=== PATIENT | female | born 1955 | race African-American/Black ===

== ENCOUNTER 2021-04-20 01:48 | Inpatient (IN) | payer BC, MEDICARE ==
[~2021-04-20] VITALS: Ht 165.1 cm; Wt 63.7 kg
[2021-04-20] MEDS ORDERED: FOLI1TAB94 PO (02:10)
[2021-04-20] MEDS ORDERED: MORP15TA PO (02:10)
[2021-04-20] MEDS ORDERED: HYDR-3980 PO (02:10)
[2021-04-20] MEDS ORDERED: LUBI24CA5 PO (02:10)
[2021-04-20] MEDS ORDERED: DOCU100C36 PO (02:10)
[2021-04-20] MEDS ORDERED: IV NORMAL SALINE 1000 ML BAG IV ONE (02:15)
[2021-04-20 02:52] LABS: HEMATOCRIT 25.5 % (31.2-41.9); MEAN CORPUSCULAR VOLUME 79.9 fL (75.5-95.3); PLATELET COUNT (AUTO) 345 K/uL (179-408)
[2021-04-20 02:59] LABS: CREATININE 1.9 mg/dL (0.6-1.3); POTASSIUM 4.1 mmol/L (3.5-5.1)
[2021-04-20 03:01] LABS: NEUTROPHILS % (MANUAL) 0 % (42-75)
[2021-04-20 03:11] LABS: BILIRUBIN,DIRECT 0.2 mg/dL (0.0-0.2); BILIRUBIN,TOTAL 0.5 mg/dL (0.2-1.0); TOTAL PROTEIN, SERUM 6.1 g/dL (6.4-8.2)
[2021-04-20] MEDS ORDERED: KETAMINE HCL 500 MG/10 ML INJ IV ONE (03:30)
[2021-04-20] MEDS ORDERED: AZITHROMYCIN IV 500 MG in IV DEXTROSE 5% 250 ML IV ONE (06:15)
[2021-04-20] MEDS ORDERED: CEFEPIME HCL 1 G in IV DEXTROSE 5% 50 ML IV ONE (06:15)
[2021-04-20] MEDS ORDERED: REMEDY ESSENTIAL ZINC PASTE 113 GM TP PRN (06:30)
[2021-04-20] MEDS ORDERED: CEFTRIAXONE 500 MG in IV DEXTROSE 5% 50 ML IV SCH (06:30)
--- NOTE | 2021-04-20 07:55 | NUR ---
Called report to DEVON Mario.
[2021-04-20] MEDS ORDERED: Medication Not On Formulary EA (Lubiprostone (Amitiza) 24 MCG) PO SCH (09:00)
[2021-04-20] MEDS ORDERED: FUROSEMIDE 40 MG/4 ML VIAL IV SCH (09:00)
[2021-04-20] MEDS: FOLIC ACID 1 MG TABLET PO SCH (09:02)
[2021-04-20] MEDS: DOCUSATE SODIUM 100 MG CAPSULE PO SCH ×2 (09:02→16:03)
[2021-04-20] MEDS: VANCOMYCIN IV 750 MG in IV DEXTROSE 5% 250 ML IV SCH (09:02)
[2021-04-20 09:40] VITALS: BP 113/80
--- NOTE | 2021-04-20 09:45 | NUR ---
Received report from DEVON Baumann from ER.
--- NOTE | 2021-04-20 09:47 | NUR ---
Received patient from ER. Patient presented to ER with generalized weakness due to numerous attempts of trying to get out of bed. Upon assessment, patient appears to be AOx3. Patient has liver cancer and currently has a permacatch on patient's upper right chest. Due to patient's CHF, patient will only be receiving fluids with antibiotics scheduled for the day. Site is intact and patent. Patient showing no immediate signs of distress or discomfort. Bed left in lowest position with call light within reach.
[2021-04-20] MEDS: CEFEPIME HCL 1 G in IV DEXTROSE 5% 50 ML IV SCH (11:01)
[2021-04-20 12:00] VITALS: BP 103/61
[2021-04-20] MEDS ORDERED: CEFEPIME HCL 2 G in IV DEXTROSE 5% 100 ML IV SCH (14:00)
[2021-04-20 16:00] VITALS: BP 96/63
[2021-04-20] MEDS: HYDROCODONE/APAP 10-325 MG TABLET PO PRN ×2 (16:15→21:30)
[2021-04-20 20:35] VITALS: BP 95/53
--- NOTE | 2021-04-20 21:39 | NUR ---
Patient in bed awake and able to make needs known.C/o abd'l pain.Medicated with [place].Repositioned patient for comfort. Perma cath on right upper chest intact. Incontinent .Voided well.Call light with in reach.Will continue to monitor.
[2021-04-21 00:21] VITALS: BP 105/67
[2021-04-21] MEDS: ACETAMINOPHEN 325 MG TABLET PO PRN ×2 (01:59→11:01)
[2021-04-21] MEDS: HYDROCODONE/APAP 10-325 MG TABLET PO PRN ×4 (05:12→20:30)
[2021-04-21 05:35] LABS: *BILIRUBIN,URIN NEGATIVE (NEGATIVE); *BLOOD, URINE NEGATIVE (NEGATIVE); *CLARITY,URINE CLEAR (CLEAR); *COLOR,URINE YELLOW (YELLOW); *KETONES,URINE NEGATIVE (NEGATIVE); *UROBILINOGEN,URINE 0.2 E.U./dl (NORMAL); LEUKOCYTE ESTERASE ,URINE NEGATIVE (NEGATIVE); NITRITE, URINE NEGATIVE (NEGATIVE); UGLUCOSE NEGATIVE (NEGATIVE)
[2021-04-21 05:46] VITALS: BP 102/58
[2021-04-21 06:36] LABS: HEMATOCRIT 22.4 % (31.2-41.9); MEAN CORPUSCULAR HEMOGLOBIN 26.4 uug (24.7-32.8); MEAN CORPUSCULAR VOLUME 79.2 fL (75.5-95.3); PLATELET COUNT (AUTO) 284 K/uL (179-408)
[2021-04-21 07:05] LABS: CREATININE 1.8 mg/dL (0.6-1.3); MAGNESIUM 1.7 mg/dL (1.8-2.4); PHOSPHOROUS 2.7 mg/dL (2.5-4.9)
[2021-04-21] MEDS ORDERED: POTASSIUM CHLORIDE 20 MEQ POWDER PACKET GT ONE (08:00)
[2021-04-21] MEDS ORDERED: MAGNESIUM SULFATE/D5W 100 ML IV SCH (08:00)
[2021-04-21] MEDS ORDERED: POTASSIUM CHLORIDE 20 MEQ POWDER PACKET PO ONE (08:00)
[2021-04-21] MEDS: FOLIC ACID 1 MG TABLET PO SCH (08:26)
[2021-04-21] MEDS: DOCUSATE SODIUM 100 MG CAPSULE PO SCH ×2 (08:26→16:28)
[2021-04-21] MEDS: METOPROLOL SUCCINATE XL 25 MG TAB.SR.24H PO SCH (08:29)
[2021-04-21] MEDS ORDERED: POTASSIUM CHLORIDE 10 MEQ, LIDOCAINE-MPF 1% 1 ML in IV DEXTROSE 5% 100 ML IV SCH ×6 (09:00)
[2021-04-21] MEDS: POTASSIUM CHLORIDE 10 MEQ, LIDOCAINE-MPF 1% 1 ML in IV DEXTROSE 5% 100 ML IV SCH ×6 (09:57→15:27)
[2021-04-21] MEDS: CEFEPIME HCL 1 G in IV DEXTROSE 5% 50 ML IV SCH (10:51)
[2021-04-21 11:49] VITALS: BP 98/57
--- NOTE | 2021-04-21 11:56 | NUR ---
WOUND CARE CONSULT: PT PRESENTS WITH SACRAL STAGE 3 ULCER WITH SURROUNDING INTACT DEEP TISSUE INJURY, PRESENT ON ADMISSION. PT IS VERY THIN AND BONY. DIETARY CONSULT IN PLACE. SURGICAL CONSULT REQUESTED FROM DR WALTERS FOR SACRAL WOUND. RECOMMENDATIONS MADE FOR SKIN PROTECTION. DISCUSSED WITH NURSING STAFF. FIRST STEP LOW AIRLOSS MATTRESS IS ON ORDER. IN AGREEMENT WITH PLAN OF CARE. Addendum: 04/21/21 at 1158 by SHAHBAZ SOTO RN Amended: Links added.
--- NOTE | 2021-04-21 14:41 | NUR ---
Clinical Social Work Note SW consult was requested for continuity of care. Sw met with 66 year old female who is alert and oriented x4. Patient presents with a withdrawn mood and flat affect. SW inquired about patient's support system at home and discuss discharge plans. Patient stated that she lives alone and does not have family. SW asked patient if she will be interested in SNF placement and she refused. SW asked patient if she would like caregiving resources and patient refused. Patient stated that she would like to be discharged home with home health. Plan: SW will file an APS report due to self neglect.
--- NOTE | 2021-04-21 15:09 | NUR ---
Social Work APS Report Protective Services Report (Intake ID [id number]) was submitted on 04/21/2021 at 3:06 PM. A copy of report has been placed in patients chart.
--- NOTE | 2021-04-21 15:29 | NUR ---
Patient receiving last bag of Potassium 08/07. Scheduled to complete at 1630
[2021-04-21 16:47] VITALS: BP 98/78
--- NOTE | 2021-04-21 17:07 | NUR ---
Wound treatment for patient's sacrum to be treated with oil emulsion dressing, with mepillex dressing over both the wound and oil emulsion dressing. Will endorse information to PM nurse.
[2021-04-21] MEDS: VANCOMYCIN IV 750 MG in IV DEXTROSE 5% 250 ML IV SCH (17:32)
--- NOTE | 2021-04-21 18:57 | NUR ---
Patient dealt with pain most of shift despite pain management. Patient still rates pain high. Comfort measures provided by providing step down mattress, and utilization of pain management medication. Patient not showing any signs of distress or discomfort. Patient seen my social work lecturer, dietitian, and awaiting for pain management consult. Portacath site intact and patent. Bed left in lowest position with call light within reach. Will endorse information to PM nurse
--- NOTE | 2021-04-21 20:00 | NUR ---
Patient noted with severe pain to ABD radiating under ribcages, Tender to touch. Made aware Tylenol is available and norco can be given soon. Patient insists on having Morphine and [place] as combination for pain. On RA, no SOB. AAO x4. Portacath in place to right chest wall. Telemetry is NSR at HR 85 BPM. Noted with pitting edema to BLE, 2+. On RA, no SOB. Needs attended, call light within reach.
[2021-04-21 20:36] VITALS: BP 101/62
[2021-04-21] MEDS ORDERED: MORPHINE SULFATE 2 MG/1 ML DISP.SYRIN IV PRN (22:00)
--- NOTE | 2021-04-21 22:20 | NUR ---
MD Evans made aware of patient severe pain to ABD and request for Morphine PRN for break through pain. Per MD, Pain management needs to assess patient for proper OPIOID dosing. One time dose for Morphine 0.5mg IV provided and carried out. Explained this to patient and she agrees.
[2021-04-22 00:54] VITALS: BP 95/51
[2021-04-22] MEDS: HYDROCODONE/APAP 10-325 MG TABLET PO PRN ×4 (03:14→18:20)
[2021-04-22] MEDS: ONDANSETRON 4 MG/2 ML VIAL IV PRN ×2 (03:30→11:46)
[2021-04-22 04:00] VITALS: BP 125/69
[2021-04-22 06:17] LABS: CREATININE 1.5 mg/dL (0.6-1.3); POTASSIUM 3.6 mmol/L (3.5-5.1)
[2021-04-22 06:38] LABS: HEMATOCRIT 24.8 % (31.2-41.9); MEAN CORPUSCULAR HEMOGLOBIN 26.5 uug (24.7-32.8); MEAN CORPUSCULAR VOLUME 78.9 fL (75.5-95.3); PLATELET COUNT (AUTO) 274 K/uL (179-408)
--- NOTE | 2021-04-22 06:51 | NUR ---
Patient slept intermittent. Noted with severe pain when repositioned. patient states she slept well without pain for a few hours after the morphine and [place] dose. Portacath in place to right chest wall. Telemetry is NSR at HR 75 BPM. Still noted with Pitting edema to BLE. On RA, no SOB. Call light within reach.
[2021-04-22] MEDS: FOLIC ACID 1 MG TABLET PO SCH (08:57)
[2021-04-22] MEDS: METOPROLOL SUCCINATE XL 25 MG TAB.SR.24H PO SCH (08:57)
[2021-04-22] MEDS: DOCUSATE SODIUM 100 MG CAPSULE PO SCH ×2 (08:57→16:28)
[2021-04-22] MEDS: ENSURE ENLIVE (VAN) 240 ML LIQUID PO SCH (08:58)
[2021-04-22 11:04] VITALS: BP 125/80
[2021-04-22] MEDS: CEFEPIME HCL 1 G in IV DEXTROSE 5% 50 ML IV SCH (11:47)
[2021-04-22] MEDS: MORPHINE SULFATE IR 30 MG TABLET PO PRN ×3 (13:58→22:43)
[2021-04-22 15:15] VITALS: BP 118/77
--- NOTE | 2021-04-22 19:35 | NUR ---
PT AA) x4. Able to make needs known. States he pain is now more controlled with new regimen. On RA, no SOB. Portacath in place to right chest wall, patent and intact. Telemetry is NSR at HR 76 BPM. Noted with pitting edema to BLE, 2+. On RA, no SOB. Needs attended, call light within reach.
[2021-04-22 20:18] VITALS: BP 128/74
[2021-04-23 00:26] VITALS: BP 121/69
[2021-04-23] MEDS: ONDANSETRON 4 MG/2 ML VIAL IV PRN ×2 (00:35→20:14)
[2021-04-23] MEDS: VANCOMYCIN IV 750 MG in IV DEXTROSE 5% 250 ML IV SCH (00:35)
[2021-04-23] MEDS: HYDROCODONE/APAP 10-325 MG TABLET PO PRN ×2 (01:45→20:20)
[2021-04-23 04:29] VITALS: BP 114/76
--- NOTE | 2021-04-23 05:58 | NUR ---
PT AA0 x4. Slept well, request pain medication for severe abdominal pain, pain relief achieved. On RA, no SOB. Portacath in place to right chest wall, patent and intact. Telemetry is NSR at HR 81 BPM. On first step mattress, turned and repositioned every 2 hours for off loading pressure areas. Tolerates well, patient needs moderate to extensive assist. Needs attended, call light within reach.
[2021-04-23 06:33] LABS: CREATININE 1.2 mg/dL (0.6-1.3); POTASSIUM 3.5 mmol/L (3.5-5.1)
[2021-04-23 06:38] LABS: HEMATOCRIT 25.7 % (31.2-41.9); MEAN CORPUSCULAR HEMOGLOBIN 25.9 uug (24.7-32.8); PLATELET COUNT (AUTO) 265 K/uL (179-408)
[2021-04-23] MEDS: MORPHINE SULFATE IR 30 MG TABLET PO PRN ×3 (06:48→22:45)
--- NOTE | 2021-04-23 08:00 | NUR ---
patient resting comfortably in with mophine previously given by night time babysitter, no signs of distress. seen by DR MAY FOR FOLLOW-UP SEE NOTES. SR ON MONITOR
[2021-04-23] MEDS: FOLIC ACID 1 MG TABLET PO SCH (08:17)
[2021-04-23] MEDS: DOCUSATE SODIUM 100 MG CAPSULE PO SCH ×2 (08:17→16:34)
[2021-04-23] MEDS: METOPROLOL SUCCINATE XL 25 MG TAB.SR.24H PO SCH (08:17)
[2021-04-23] MEDS: ENSURE ENLIVE (VAN) 240 ML LIQUID PO SCH ×2 (08:18→16:34)
[2021-04-23] MEDS ORDERED: MEROPENEM 1 G in IV NORMAL SALINE 100 ML IV ONE (09:00)
[2021-04-23 11:46] VITALS: BP 112/65
--- NOTE | 2021-04-23 11:59 | NUR ---
RESTING AND SLEEPING MOST OF THE MORNING. NO SS OF ACUTE PAIN AND DISTRESS
[2021-04-23 16:19] VITALS: BP 132/78
--- NOTE | 2021-04-23 18:05 | NUR ---
CONTINUE WITH PAIN MANAGEMENT WITH GOOD RELIEF. RESTING MOST ON THE DAY. SR ON MONITOR. CONTINUE WITH TELE MONITORING
--- NOTE | 2021-04-23 19:30 | NUR ---
Patient resting in bed, comfortable in bed. Denies any pain at this time. On RA, no SOB. Portacath in place to right chest wall, patent and intact. Telemetry is NSR. Noted with pitting edema to BLE, 1+. Needs attended, call light within reach.
[2021-04-23 20:09] VITALS: BP 132/77
[2021-04-23] MEDS: MEROPENEM 1 G in IV NORMAL SALINE 100 ML IV SCH (20:14)
[2021-04-23] MEDS: MAGNESIUM HYDROXIDE 30 ML LIQUID UDC PO PRN (20:20)
[2021-04-24 00:03] VITALS: BP 120/77
[2021-04-24] MEDS: VANCOMYCIN IV 1,000 MG in IV DEXTROSE 5% 250 ML IV SCH (00:46)
[2021-04-24 04:09] VITALS: BP 122/69
--- NOTE | 2021-04-24 05:35 | NUR ---
Patient requested Morphine one time and [place] one time. Pain management is effective. Noted with one episode of nausea, states she has not had a bm in 3 days. MOM administered to aide in BM. No BM at this time. Call light within reach, all needs attended.
[2021-04-24 06:21] LABS: HEMATOCRIT 26.5 % (31.2-41.9); MEAN CORPUSCULAR HEMOGLOBIN 25.7 uug (24.7-32.8); MEAN CORPUSCULAR VOLUME 79.2 fL (75.5-95.3); PLATELET COUNT (AUTO) 251 K/uL (179-408)
[2021-04-24 06:32] LABS: CREATININE 1.1 mg/dL (0.6-1.3); POTASSIUM 3.5 mmol/L (3.5-5.1)
[2021-04-24] MEDS: MORPHINE SULFATE IR 30 MG TABLET PO PRN ×3 (06:47→23:10)
--- NOTE | 2021-04-24 08:00 | NUR ---
PT alert and oriented x 4. PT denies any c/o pain. pt comfortable in bed with 1st step airmatress. Listened to bowel sounds present. Discussed pain management with Patient. PT agreeable of notifying nurses if shes in pain and not to wait for her pain level to escalate to more than 4/10. Pt preferred position in on semi mathias. Call light is within reach.
[2021-04-24] MEDS: DOCUSATE SODIUM 100 MG CAPSULE PO SCH ×2 (09:31→15:49)
[2021-04-24] MEDS: FOLIC ACID 1 MG TABLET PO SCH (09:31)
[2021-04-24] MEDS: MEROPENEM 1 G in IV NORMAL SALINE 100 ML IV SCH ×2 (09:31→20:33)
[2021-04-24] MEDS: METOPROLOL SUCCINATE XL 25 MG TAB.SR.24H PO SCH (09:32)
[2021-04-24] MEDS: ENSURE ENLIVE (VAN) 240 ML LIQUID PO SCH ×3 (09:33→15:49)
[2021-04-24] MEDS: HYDROCODONE/APAP 10-325 MG TABLET PO PRN ×3 (09:36→21:59)
[2021-04-24 11:46] VITALS: BP 123/81
--- NOTE | 2021-04-24 15:39 | NUR ---
Clinical Social Work Note SW attempted to met with patient to discuss placement options again. Patient stated that she was currently in pain and asked if SW can return at a later time. Plan: SW will return to see patient later in the day.
[2021-04-24 15:55] VITALS: BP 111/71
--- NOTE | 2021-04-24 18:47 | NUR ---
Pt's pain managed with MS and NORCO throughout shift. Current pain level of 2/10. PT repositioned for comfort. Call light is within reach.
--- NOTE | 2021-04-24 19:57 | NUR ---
Received patient lying in bed. AAOX4. Patient reported pain on the stomach, and felt nauseous, will give medication per MD order. Patient SR on telemonitor. IV access patent and intact. Safety precautions initiated. Will continue to monitor.
[2021-04-24 20:13] VITALS: BP 124/81
[2021-04-24] MEDS: ONDANSETRON 4 MG/2 ML VIAL IV PRN (20:33)
[2021-04-25] VITALS: BP 104/70
[2021-04-25] MEDS: VANCOMYCIN IV 1,000 MG in IV DEXTROSE 5% 250 ML IV SCH (01:19)
[2021-04-25 04:15] VITALS: BP 106/65
[2021-04-25] MEDS: HYDROCODONE/APAP 10-325 MG TABLET PO PRN ×7 (05:24→23:35)
--- NOTE | 2021-04-25 05:42 | NUR ---
Patient slept intermittently through the night, had trouble sleeping due to severe pain. Pain medications were given as ordered. On tele monitor, showing sinus rhythm. IV access patent and intact. IV antibiotics given as ordered. All needs attended to and met. Safety precautions maintained.
[2021-04-25 06:26] LABS: MEAN CORPUSCULAR HEMOGLOBIN 25.9 uug (24.7-32.8); MEAN CORPUSCULAR VOLUME 80.8 fL (75.5-95.3); PLATELET COUNT (AUTO) 229 K/uL (179-408)
[2021-04-25 06:37] LABS: CREATININE 1.2 mg/dL (0.6-1.3); POTASSIUM 3.6 mmol/L (3.5-5.1)
--- NOTE | 2021-04-25 08:06 | NUR ---
Awake, alert, oriented x 4, on moderate high back rest. Received critical blood glucose of 364, discussed report with Vicenta/Lab. Blood glucose taken 107.
[2021-04-25] MEDS: FOLIC ACID 1 MG TABLET PO SCH (08:47)
[2021-04-25] MEDS: MEROPENEM 1 G in IV NORMAL SALINE 100 ML IV SCH ×2 (08:47→20:20)
[2021-04-25] MEDS: DOCUSATE SODIUM 100 MG CAPSULE PO SCH ×2 (08:47→16:29)
[2021-04-25] MEDS: MORPHINE SULFATE IR 30 MG TABLET PO PRN ×2 (08:48→17:55)
--- NOTE | 2021-04-25 08:48 | NUR ---
Complaining of abdominal pain, MS contin given as ordered
[2021-04-25] MEDS: METOPROLOL SUCCINATE XL 25 MG TAB.SR.24H PO SCH (08:59)
[2021-04-25] MEDS: ENSURE ENLIVE (VAN) 240 ML LIQUID PO SCH ×3 (09:00→16:33)
[2021-04-25 09:59] LABS: ALANINE AMINOTRANSFERASE 14 U/L (14-59); ALKALINE PHOSPHATASE 77 U/L (50-136); ASPARTATE AMINOTRANSFERASE 17 U/L (15-37); BILIRUBIN,DIRECT < 0.1 mg/dL (0.0-0.2); BILIRUBIN,TOTAL 0.5 mg/dL (0.2-1.0); TOTAL PROTEIN, SERUM 5.2 g/dL (6.4-8.2)
[2021-04-25] MEDS: ONDANSETRON 4 MG/2 ML VIAL IV PRN (10:00)
--- NOTE | 2021-04-25 10:00 | NUR ---
Still with pain, [place] po given. Nauseated, Zofran given with relief. Refused PT at this time
--- NOTE | 2021-04-25 10:13 | NUR ---
Clinical Social Work Note SW met with patient to discuss discharge planning and SNF placement. SW informed patient that she needed to make a decision regarding which SNF placement she referred. ROSALINDA provided patient with names and addresses of 3 SNF she has been accepted. Patient stated that she would like to be transferred to [facility] ([address] [facility], [place] [address] ) because it is close to her home. Patient stated that she wants to go to a SNF close to home because her goal is to be able to go home soon after admission to SNF. Plan: ROSALINDA will continue to work with CM and patient for coordinating discharge.
--- NOTE | 2021-04-25 11:36 | NUR ---
Resting. Endorsed for further care
[2021-04-25 11:46] VITALS: BP 112/73
[2021-04-25] MEDS ORDERED: MENT113O TP (13:36)
[2021-04-25] MEDS ORDERED: ASCO500P18 PO (13:36)
[2021-04-25] MEDS ORDERED: MAGN400O6 PO (13:36)
[2021-04-25] MEDS ORDERED: ACID1TAB4 PO (13:36)
[2021-04-25] MEDS ORDERED: RXVAN XX (13:36)
[2021-04-25] MEDS ORDERED: Lactose-Free Food PO (13:36)
[2021-04-25] MEDS ORDERED: ACET325T53 PO (13:36)
[2021-04-25] MEDS ORDERED: MERO1VIA23 IV (13:36)
[2021-04-25] MEDS ORDERED: ZINC220T4 PO (13:36)
[2021-04-25] MEDS ORDERED: FERR325T28 PO (13:43)
--- NOTE | 2021-04-25 15:37 | NUR ---
Clinical Social Work Note SW met with patient to discuss SNF placement. SW called Sultana CM, and had her on speaker phone to discuss changes with SNF placement. Patient shared that she no longer wants to be transferred to a SNF and would like to go home with home health. According to patient, she will be discharged on and CM explained that doctor has discharged patient as of today. Patient refused and CM informed patient that she can appeal her discharge. CM explained to patient the process of appeal and provided patient with [employer] phone number ([phone]). SW guided patient in calling for appeal now. Plan: SW will follow up with patient in an 45 minutes to help with appeal.
[2021-04-25 16:00] VITALS: BP 109/69
[2021-04-25 20:20] VITALS: BP 111/75
[2021-04-25] MEDS: MAGNESIUM HYDROXIDE 30 ML LIQUID UDC PO PRN (20:21)
[2021-04-26] VITALS: BP 115/77
[2021-04-26] MEDS: VANCOMYCIN IV 1,000 MG in IV DEXTROSE 5% 250 ML IV SCH (01:21)
[2021-04-26] MEDS: MORPHINE SULFATE IR 30 MG TABLET PO PRN ×3 (02:19→18:02)
[2021-04-26 04:00] VITALS: BP 116/78
[2021-04-26] MEDS: ONDANSETRON 4 MG/2 ML VIAL IV PRN (05:42)
--- NOTE | 2021-04-26 06:31 | NUR ---
Patient awake c/o nauseated,Zofran IVP given. On RA.No s/s of distress noted.Bin cath in place on right upper chest.Continue on ATB therapy.No a/r noted.Wound care provided. Changed and repositioned patient for comfort. Patient c/o abd'l pain .Medicated with norco.All needs anticipated and met accordingly. Will endorsed to oncoming shift.
[2021-04-26] MEDS: HYDROCODONE/APAP 10-325 MG TABLET PO PRN ×3 (06:38→21:30)
--- NOTE | 2021-04-26 08:00 | NUR ---
RECEIVED PATIENT RESTING IN BED WITH EYES CLOSED NO SIGNS OF DISTRESS, DENIES ANY PAIN. SR IN MONITOR
[2021-04-26] MEDS: DOCUSATE SODIUM 100 MG CAPSULE PO SCH ×2 (08:04→16:42)
[2021-04-26] MEDS: FOLIC ACID 1 MG TABLET PO SCH (08:04)
[2021-04-26] MEDS: MEROPENEM 1 G in IV NORMAL SALINE 100 ML IV SCH ×2 (08:04→20:28)
[2021-04-26] MEDS: ENSURE ENLIVE (VAN) 240 ML LIQUID PO SCH ×3 (08:05→16:42)
[2021-04-26] MEDS: METOPROLOL SUCCINATE XL 25 MG TAB.SR.24H PO SCH (08:06)
[2021-04-26 08:42] LABS: BILIRUBIN,TOTAL 0.2 mg/dL (0.2-1.0); MAGNESIUM 2.2 mg/dL (1.8-2.4); PHOSPHOROUS 2.1 mg/dL (2.5-4.9); POTASSIUM 4.1 mmol/L (3.5-5.1)
--- NOTE | 2021-04-26 09:00 | NUR ---
SEEN BY DR LO FOR FOLLOW-UP, STATUS CHANGE TO MS
[2021-04-26 09:12] LABS: THYROID STIMULATING HORMONE 14.994 mIU/mL (0.358-3.740)
[2021-04-26 09:35] LABS: HEMATOCRIT 26.1 % (31.2-41.9); MEAN CORPUSCULAR VOLUME 79.6 fL (75.5-95.3); PLATELET COUNT (AUTO) 208 K/uL (179-408)
[2021-04-26 10:30] LABS: BAND % (MANUAL) 1 % (0-10); EOSINOPHILS % (MANUAL) 1 % (0-8); LYMPHOCYTES % (MANUAL) 19 % (20-40); MONOCYTES % (MANUAL) 8 % (2-10); NEUTROPHILS % (MANUAL) 71 % (42-75)
--- NOTE | 2021-04-26 10:32 | NUR ---
SEEN BY TAPERING MACHINE OPERATOR ONCOLOGIST FOR FOLLOW-UP UNDER DR LAMAR SEE NOTES
[2021-04-26 12:00] VITALS: BP 107/71
--- NOTE | 2021-04-26 12:54 | NUR ---
Spoke to daren regarding paracentesis. waiting for consent
--- NOTE | 2021-04-26 13:30 | NUR ---
SEEN BY DR BINGHAM DISCUSSED PLAN OF CARE AND DC PLANNING. SEE NOTES
--- NOTE | 2021-04-26 14:04 | NUR ---
Called [facility]. unable to get a hold of radiologist at this time.
[2021-04-26] MEDS ORDERED: NEUTRA PHOS PACKET PO ONE (15:15)
[2021-04-26 16:00] VITALS: BP 109/76
--- NOTE | 2021-04-26 16:35 | NUR ---
CONTINUE WITH PAIN MANAGEMENT, DC PLANNING. SEE CM NOTES
[2021-04-26 20:00] VITALS: BP 95/60
[2021-04-27] MEDS: VANCOMYCIN IV 1,000 MG in IV DEXTROSE 5% 250 ML IV SCH (01:00)
[2021-04-27] MEDS: MORPHINE SULFATE IR 30 MG TABLET PO PRN ×3 (03:45→20:13)
[2021-04-27] MEDS: LEVOTHYROXINE SODIUM 25 MCG TABLET PO SCH (06:01)
--- NOTE | 2021-04-27 06:27 | NUR ---
Patient c/o being constipated. Offered MOM patient refused .Stated she wants something else.Notified Tonio Giron.Awaiting response. Will endorse to morning shift
[2021-04-27 07:07] LABS: *IMMUNOGLOBULIN G, SERUM 1059 mg/dL (586-1602); IMMUNOGLOBULIN A, SERUM 184 mg/dL (87-352); IMMUNOGLOBULIN M, SERUM 48 mg/dL (26-217)
[2021-04-27] MEDS ORDERED: LACTULOSE 20 G/30 ML LIQUID UDC PO ONE (07:45)
[2021-04-27] MEDS ORDERED: SORBITOL 70% SOLUTION 30 ML UDC PO ONE (07:45)
[2021-04-27 08:10] LABS: MEAN CORPUSCULAR HEMOGLOBIN 25.8 uug (24.7-32.8); MEAN CORPUSCULAR VOLUME 79.3 fL (75.5-95.3); PLATELET COUNT (AUTO) 199 K/uL (179-408)
[2021-04-27 08:11] LABS: CREATININE 1.2 mg/dL (0.6-1.3); PHOSPHOROUS 2.5 mg/dL (2.5-4.9)
[2021-04-27] MEDS: HYDROCODONE/APAP 10-325 MG TABLET PO PRN ×3 (09:06→21:54)
[2021-04-27] MEDS: DOCUSATE SODIUM 100 MG CAPSULE PO SCH ×2 (09:07→16:16)
[2021-04-27] MEDS: FOLIC ACID 1 MG TABLET PO SCH (09:07)
[2021-04-27] MEDS: METOPROLOL SUCCINATE XL 25 MG TAB.SR.24H PO SCH (09:07)
[2021-04-27] MEDS: ENSURE ENLIVE (VAN) 240 ML LIQUID PO SCH ×3 (09:08→18:01)
[2021-04-27] MEDS: MEROPENEM 1 G in IV NORMAL SALINE 100 ML IV SCH ×2 (09:38→20:13)
--- NOTE | 2021-04-27 09:48 | NUR ---
The patient refused the exam. Dr. Paulino noted.
[2021-04-27 11:06] LABS: A/G RATIO 0.7 (0.7-1.7); ALPHA-1-GLOBULIN 0.3 g/dL (0.0-0.4); ALPHA-2-GLOBULIN 0.7 g/dL (0.4-1.0); BETA GLOBULIN 0.7 g/dL (0.7-1.3); GAMMA GLOBULIN 0.9 g/dL (0.4-1.8); GLOBULIN, TOTAL 2.7 g/dL (2.2-3.9); M-SPIKE Not Observed g/dL (Not Observed)
[2021-04-27 11:29] LABS: BAND % (MANUAL) 3 % (0-10); LYMPHOCYTES % (MANUAL) 16 % (20-40); MONOCYTES % (MANUAL) 6 % (2-10); NEUTROPHILS % (MANUAL) 75 % (42-75)
[2021-04-27 12:00] VITALS: BP 105/73
--- NOTE | 2021-04-27 13:52 | NUR ---
Clinical Social Work Note SW met with patient and CM on speaker phone to discuss patient's appeal. CM explained to patient the hospital recommendations for SNF and patient stated that she did not want to go to a SNF. Patient insisted that she wants to go home. CM inquired from patient if she had received a call from [employer] regarding status of appeal. Patient stated that she has been feeling ill all day and did not have her phone. SW informed patient that she will return in hour to check if she received a call from [employer]. Plan: ROSALINDA will continue to work with CM regarding patient's discharge.
[2021-04-27 16:14] VITALS: BP 101/71
[2021-04-27] MEDS: ONDANSETRON 4 MG/2 ML VIAL IV PRN ×2 (18:09→22:36)
[2021-04-27 20:00] VITALS: BP 142/68
--- NOTE | 2021-04-27 22:25 | NUR ---
Received patient lying in bed. AAOX4. Patient reported severe pain, medication given as ordered. Patient repositioned accordingly to reduce pain. IV access patent and intact. Safety precautions initiated. Will continue to monitor.
--- NOTE | 2021-04-27 23:20 | NUR ---
Patient reports severe pain, despite having ordered morphine and norco. V/S taken with results showing BP: 181/69mmhg, FL: 99bpm, O2: 98%, and temp of 97.9. MD ordered one time Dilaudid 1mg IV and Clonidine 0.1mg PRN for SBP above 150.
[2021-04-27] MEDS ORDERED: CLONIDINE HCL 0.1 MG TABLET PO PRN (23:30)
[2021-04-27] MEDS ORDERED: HYDROMORPHONE 1 MG/1 ML DISP.SYRIN IV ONE (23:30)
[2021-04-28 03:09] LABS: *OCCULT BLOOD STOOL NEGATIVE (NEGATIVE)
[2021-04-28] MEDS: LEVOTHYROXINE SODIUM 25 MCG TABLET PO SCH (06:32)
[2021-04-28 08:01] VITALS: BP 110/64
[2021-04-28] MEDS: DOCUSATE SODIUM 100 MG CAPSULE PO SCH ×2 (08:02→16:18)
[2021-04-28] MEDS: METOPROLOL SUCCINATE XL 25 MG TAB.SR.24H PO SCH (08:02)
[2021-04-28] MEDS: FOLIC ACID 1 MG TABLET PO SCH (08:02)
[2021-04-28] MEDS: ENSURE ENLIVE (VAN) 240 ML LIQUID PO SCH ×3 (08:02→16:18)
[2021-04-28] MEDS: MORPHINE SULFATE IR 30 MG TABLET PO PRN ×2 (08:03→16:18)
[2021-04-28] MEDS: MEROPENEM 1 G in IV NORMAL SALINE 100 ML IV SCH (08:17)
[2021-04-28] MEDS: HYDROCODONE/APAP 10-325 MG TABLET PO PRN ×3 (09:38→21:44)
[2021-04-28] MEDS ORDERED: HEPARIN SODIUM,PORCINE/PF 50 UNIT/5 ML SYR IV ONE (10:00)
[2021-04-28] MEDS ORDERED: HEPARIN SODIUM,PORCINE/PF 100 UNIT/ML, 5ML SYR MC ONE (10:30)
[2021-04-28 11:35] LABS: CREATININE 1.6 mg/dL (0.6-1.3); POTASSIUM 4.5 mmol/L (3.5-5.1); VANCOMYCIN,RANDOM 27.1 ug/mL (18.0-26.0)
[2021-04-28 11:49] VITALS: BP 119/70
[2021-04-28 16:00] VITALS: BP 98/59
[2021-04-28 20:52] VITALS: BP 109/70
[2021-04-28] MEDS ORDERED: LACTULOSE 20 G/30 ML LIQUID UDC PO PRN (22:30)
[2021-04-29] MEDS: MORPHINE SULFATE IR 30 MG TABLET PO PRN ×3 (00:11→17:42)
[2021-04-29] MEDS: HYDROCODONE/APAP 10-325 MG TABLET PO PRN ×4 (02:02→23:01)
[2021-04-29 04:00] VITALS: BP 112/66
[2021-04-29] MEDS: LEVOTHYROXINE SODIUM 25 MCG TABLET PO SCH (06:35)
--- NOTE | 2021-04-29 07:01 | NUR ---
RN AT BEDSIDE TO DRAW BLOOD FROM LEVI-CATH FOR AM LABS. PER RN, SHE IS ABLE TO FLUSH BUT UNABLE TO WITHDRAWAL ANY BLOOD.
[2021-04-29 08:41] LABS: CREATININE 1.4 mg/dL (0.6-1.3); MAGNESIUM 2.4 mg/dL (1.8-2.4); PHOSPHOROUS 3.2 mg/dL (2.5-4.9); POTASSIUM 4.2 mmol/L (3.5-5.1)
[2021-04-29] MEDS: DOCUSATE SODIUM 100 MG CAPSULE PO SCH ×2 (08:44→16:44)
[2021-04-29] MEDS: FOLIC ACID 1 MG TABLET PO SCH (08:44)
[2021-04-29] MEDS: METOPROLOL SUCCINATE XL 25 MG TAB.SR.24H PO SCH (08:44)
[2021-04-29] MEDS: ENSURE ENLIVE (VAN) 240 ML LIQUID PO SCH ×3 (08:46→16:46)
[2021-04-29 09:21] LABS: HEMATOCRIT 23.9 % (31.2-41.9); MEAN CORPUSCULAR HEMOGLOBIN 25.8 uug (24.7-32.8); MEAN CORPUSCULAR VOLUME 78.9 fL (75.5-95.3); PLATELET COUNT (AUTO) 226 K/uL (179-408)
--- NOTE | 2021-04-29 11:15 | NUR ---
Received patient lying in bed. AAOX4. Patient reported severe pain,at the right chest port cath medication given as ordered. Patient repositioned accordingly to reduce pain. IV Port cath access patent and intact flush with good blood returned as per ordered by Ramona WATKINS Port 0.5 hover needle was remove site intact bandage applied , tolerated procedure well. Safety precautions initiated. Will continue to monitor closely.
[2021-04-29 11:45] VITALS: BP 92/63
[2021-04-29 15:52] VITALS: BP 101/60
--- NOTE | 2021-04-29 18:00 | NUR ---
PT was seen by PT today, pt was able to sit up on the side of the bed with max assist by 2 Pt's exercise upper and lower extremities
[2021-04-29 20:00] VITALS: BP 106/69
[2021-04-30] MEDS: MORPHINE SULFATE IR 30 MG TABLET PO PRN ×3 (01:33→17:38)
[2021-04-30 04:00] VITALS: BP 100/71
[2021-04-30] MEDS: HYDROCODONE/APAP 10-325 MG TABLET PO PRN ×3 (04:54→23:18)
[2021-04-30] MEDS: LEVOTHYROXINE SODIUM 25 MCG TABLET PO SCH (06:02)
--- NOTE | 2021-04-30 06:41 | NUR ---
LEVI-CATH NOT ACCESSIBLE AT THIS TIME. PATIENT REFUSED TEAM ASSISTANT TO DRAW BLOOD. WILL CONTINUE TO MONITOR AND ASSESS.
--- NOTE | 2021-04-30 08:00 | NUR ---
Discussed plan of care with pt re: pain management and to notify nursing to call for pain meds if needed and not to wait for pain level to reach 4-5/10. Discussed re: not drinking too much water. FIDELINA LE's +1. Turn pt q2hrs implemented. Pt agreeable with plan of care. Pt refused to have blood drawn and to have victor manuel cath accessed. Pt denies any c/o pain. Call light is within reach.
[2021-04-30 08:37] LABS: *BILIRUBIN,URIN NEGATIVE (NEGATIVE); *CLARITY,URINE CLEAR (CLEAR); *COLOR,URINE YELLOW (YELLOW); *KETONES,URINE TRACE (NEGATIVE); *UROBILINOGEN,URINE 0.2 E.U./dl (NORMAL); LEUKOCYTE ESTERASE ,URINE NEGATIVE (NEGATIVE); NITRITE, URINE NEGATIVE (NEGATIVE); PH,URINE 5.5 (5.0-8.0); UGLUCOSE NEGATIVE (NEGATIVE)
[2021-04-30 08:41] LABS: *BLOOD, URINE TRACE (NEGATIVE)
[2021-04-30] MEDS: DOCUSATE SODIUM 100 MG CAPSULE PO SCH ×2 (09:32→15:53)
[2021-04-30] MEDS: FOLIC ACID 1 MG TABLET PO SCH (09:33)
[2021-04-30] MEDS: METOPROLOL SUCCINATE XL 25 MG TAB.SR.24H PO SCH (09:40)
[2021-04-30] MEDS: ENSURE ENLIVE (VAN) 240 ML LIQUID PO SCH ×3 (09:41→15:54)
--- NOTE | 2021-04-30 10:00 | NUR ---
Encouraged pt to do bed excises and discuss importance. Pt agreeable with plan.
[2021-04-30 10:18] LABS: BACTERIA,URINE MODERATE /HPF (NONE SEEN); RBC,URINE 0-3 /HPF (0-3); SQUAMOUS EPITHELIAL CELL,UR FEW /HPF (NONE SEEN); WBC,URINE 0-3 /HPF (0-3); YEAST,URINE MANY /HPF (NONE SEEN)
[2021-04-30 12:00] VITALS: BP 122/72
[2021-04-30 16:00] VITALS: BP 125/51
--- NOTE | 2021-04-30 18:00 | NUR ---
Pt is in no acute distress. Pts pain managed with morphine and norco as ordered. Call light is within reach.
[2021-04-30 22:49] VITALS: BP 107/62
[2021-05-01] MEDS: MORPHINE SULFATE IR 30 MG TABLET PO PRN ×3 (01:47→18:05)
[2021-05-01 04:30] VITALS: BP 117/71
[2021-05-01] MEDS: HYDROCODONE/APAP 10-325 MG TABLET PO PRN ×3 (04:49→18:34)
[2021-05-01] MEDS: LEVOTHYROXINE SODIUM 25 MCG TABLET PO SCH (06:43)
[2021-05-01 07:27] LABS: HEMATOCRIT 25.9 % (31.2-41.9); MEAN CORPUSCULAR HEMOGLOBIN 25.9 uug (24.7-32.8); MEAN CORPUSCULAR VOLUME 79.7 fL (75.5-95.3); PLATELET COUNT (AUTO) 299 K/uL (179-408)
--- NOTE | 2021-05-01 07:33 | NUR ---
Patient AO x 3/4, forgetful at times. On room air saturating at 96%. Crushed meds and mixed with apple sauce. [place] and Morphine given around the clock as needed for complaint of pain. No signs of acute distress. Call lights within reach. Safety measures maintained. Will endorse to am shift.
[2021-05-01 07:51] LABS: BILIRUBIN,TOTAL 0.3 mg/dL (0.2-1.0); CREATININE 1.2 mg/dL (0.6-1.3); MAGNESIUM 2.5 mg/dL (1.8-2.4); PHOSPHOROUS 2.9 mg/dL (2.5-4.9); POTASSIUM 4.8 mmol/L (3.5-5.1)
[2021-05-01] MEDS: METOPROLOL SUCCINATE XL 25 MG TAB.SR.24H PO SCH (09:32)
[2021-05-01] MEDS: DOCUSATE SODIUM 100 MG CAPSULE PO SCH ×2 (09:32→15:56)
[2021-05-01] MEDS: FOLIC ACID 1 MG TABLET PO SCH (09:32)
[2021-05-01] MEDS: ENSURE ENLIVE (VAN) 240 ML LIQUID PO SCH ×3 (09:33→15:56)
[2021-05-01] MEDS: SPIRONOLACTONE 25 MG TABLET PO SCH (11:07)
[2021-05-01 11:36] VITALS: BP 126/79
[2021-05-01 15:32] VITALS: BP 139/93
[2021-05-01] MEDS: THERAHONEY GEL 1.5 OZ TUBE TOP SCH (15:43)
[2021-05-01] MEDS ORDERED: HYDROMORPHONE 1 MG/1 ML DISP.SYRIN IV ONE (15:45)
--- NOTE | 2021-05-01 19:00 | NUR ---
PT's pain managed with morphine and norco as prescribed. Sacral wound seen by KOBY henson received and given to patient with the therandrew. pt on KCI bed. Turned pt q 2 hrs done and prn for pt's comfort. Call light is within reach.
--- NOTE | 2021-05-01 19:45 | NUR ---
Received pt resting in bed, asleep. Easily arousable. No signs of acute distress noted. On air mattress. Call lights within reach. Safety measures implemented.
[2021-05-01 20:00] VITALS: BP 131/83
--- NOTE | 2021-05-01 22:10 | NUR ---
Wound care done on sacral area. Cleanse with NS, pat dried, applied therahoney on sacral area with mepilex covered. Repositioned.
[2021-05-02] MEDS: HYDROCODONE/APAP 10-325 MG TABLET PO PRN ×4 (01:14→20:00)
[2021-05-02] MEDS: MORPHINE SULFATE IR 30 MG TABLET PO PRN ×3 (02:26→18:48)
[2021-05-02 04:00] VITALS: BP 124/81
[2021-05-02 06:12] LABS: HEMATOCRIT 25.5 % (31.2-41.9); MEAN CORPUSCULAR HEMOGLOBIN 26.3 uug (24.7-32.8); MEAN CORPUSCULAR VOLUME 79.9 fL (75.5-95.3); PLATELET COUNT (AUTO) 306 K/uL (179-408)
[2021-05-02 06:30] LABS: MAGNESIUM 2.6 mg/dL (1.8-2.4); PHOSPHOROUS 3.2 mg/dL (2.5-4.9)
[2021-05-02] MEDS: LEVOTHYROXINE SODIUM 25 MCG TABLET PO SCH (06:33)
[2021-05-02 08:00] VITALS: BP 123/75
[2021-05-02] MEDS: FOLIC ACID 1 MG TABLET PO SCH (08:14)
[2021-05-02] MEDS: DOCUSATE SODIUM 100 MG CAPSULE PO SCH ×2 (08:14→16:53)
[2021-05-02] MEDS: SPIRONOLACTONE 25 MG TABLET PO SCH (08:14)
[2021-05-02] MEDS: METOPROLOL SUCCINATE XL 25 MG TAB.SR.24H PO SCH (08:14)
[2021-05-02] MEDS: ENSURE ENLIVE (VAN) 240 ML LIQUID PO SCH ×3 (08:14→16:54)
[2021-05-02] MEDS: THERAHONEY GEL 1.5 OZ TUBE TOP SCH (08:15)
[2021-05-02 11:31] VITALS: BP 125/86
--- NOTE | 2021-05-02 14:57 | NUR ---
Clinical Social Work Note SW received a call from APS (Delores Cool [phone]) who inquired about patient's discharge. SW informed Ms. Cool that patient remains in hospital and is inconsistent with deciding if she wants SNF or home. SW informed that she will update her once a discharge plan is known.
[2021-05-02 16:00] VITALS: BP 125/82
--- NOTE | 2021-05-02 18:26 | NUR ---
The patient remained stable during the shift. no distress identified. wound care done to the sacral area as ordered. dc order today, per patient she will have a home health at home and preferred to be home tomorrow due to the availability of the landlord. Referred to Sultana [place] and Dr Clark, JUNE. PRN pain medication given PRN. kept call light within reach. All needs attended. Safety measures maintained. will endorse to the next shift for continuity of care.
--- NOTE | 2021-05-02 20:15 | NUR ---
Received patient in bed. AAOX3, episodes of forgetfulness. Reports pain, PRN norco given as ordered. Crushed meds with apple sauce. On air mattress. Repositioned for comfort. Safety precautions initiated. Will continue to monitor.
--- NOTE | 2021-05-03 02:20 | NUR ---
Patient complained of having shoulder pain, repositioned for comfort and warm packs applied to affected area.
[2021-05-03] MEDS: MORPHINE SULFATE IR 30 MG TABLET PO PRN ×2 (02:45→11:21)
[2021-05-03] MEDS: HYDROCODONE/APAP 10-325 MG TABLET PO PRN (03:56)
[2021-05-03] MEDS: LEVOTHYROXINE SODIUM 25 MCG TABLET PO SCH (06:24)
--- NOTE | 2021-05-03 06:53 | NUR ---
Patient slept poorly last night. Frequently complained of pain. PRN pain medications were given as ordered. Non-pharmacological methods were introduced as well. Massage therapy and frequent repositioning were done to reduce pain. Compliant with medication regimen. Sacral wound reassessed, photo taken and attached to chart. Safety precautions maintained. Will endorse to day shift.
[2021-05-03 09:00] VITALS: BP 97/64
[2021-05-03] MEDS: METOPROLOL SUCCINATE XL 25 MG TAB.SR.24H PO SCH (09:00)
[2021-05-03] MEDS: DOCUSATE SODIUM 100 MG CAPSULE PO SCH (09:36)
[2021-05-03] MEDS: SPIRONOLACTONE 25 MG TABLET PO SCH (09:36)
[2021-05-03] MEDS: FOLIC ACID 1 MG TABLET PO SCH (09:36)
[2021-05-03] MEDS: ENSURE ENLIVE (VAN) 240 ML LIQUID PO SCH (09:36)
[2021-05-03] MEDS: THERAHONEY GEL 1.5 OZ TUBE TOP SCH (09:39)
--- NOTE | 2021-05-03 12:30 | NUR ---
discharged patient via ambulance against medical advise. MD explained to patient she needed a 24hr CG as ordered but patient insisted she wants to go home and refused to go SNF. No pain noted or distress identified. Patient signed AMA form, she is alert/orientedx4. belonging list signed. photo of sacral in chart. all needs were attended and meds were given.
--- NOTE | 2021-05-04 13:12 | NUR ---
Clinical Social Work Note ROSALINDA called Delores Cool ([phone]) APS worker to update her about patient's discharge. ROSALINDA informed Ms. Cool about patient signing out AMA and was transported home.
== END 2021-05-03 12:30 | disposition left against medical advice (07) | DRG 193 ==
LOC: ER 03:52 → TELE3 08:01 → MEDSURG3 04-26 09:12
PROVIDERS: ADMIT Family Medicine; ATTEND Nurse Practitioner Acute Care
PROC: 0W9G3ZZ Drainage of Peritoneal Cavity, Percutaneous Approach (ICD-10-PCS; principal; 2021-04-27)
DX: J15.9 Unspecified bacterial pneumonia (principal); N17.0 Acute kidney failure with tubular necrosis; E43 Unspecified severe protein-calorie malnutrition; I50.31 Acute diastolic (congestive) heart failure; C22.9 Malignant neoplasm of liver, not specified as primary or secondary; Z68.1 Body mass index [BMI] 19.9 or less, adult; D68.59 Other primary thrombophilia; R18.8 Other ascites; E88.09 Other disorders of plasma-protein metabolism, not elsewhere classified; G89.4 Chronic pain syndrome; K80.20 Calculus of gallbladder without cholecystitis without obstruction; R53.1 Weakness; D63.8 Anemia in other chronic diseases classified elsewhere; N18.9 Chronic kidney disease, unspecified; L89.156 Pressure-induced deep tissue damage of sacral region; G89.3 Neoplasm related pain (acute) (chronic); Z79.891 Long term (current) use of opiate analgesic; M19.90 Unspecified osteoarthritis, unspecified site; I34.0 Nonrheumatic mitral (valve) insufficiency; Z79.899 Other long term (current) drug therapy; Z68.23 Body mass index [BMI] 23.0-23.9, adult; Z91.81 History of falling; Z20.822 Contact with and (suspected) exposure to COVID-19
CPT/HCPCS: 36415; 70030-TC; 71045; 74018; 82105; 82784; 83550; 83605; 83735; 84100; 84155; 84165; 84443; 85025; 85610; 85730; 86334; 87040; 87086; 87400; 93005; 93307; 97161; A4663; A6209; C1758; G0378; J0692; J1170; J1940; J2001; J2185; J2270; J2405; J3370; J3475; J3480; J3490; J7030; J7040; J7050; J7060